=== PATIENT | female | born 1960 | race Caucasian/White ===

== ENCOUNTER 2017-12-12 10:37 | Outpatient (CLI) | payer OTHER ==
[~2017-12-12 10:37] MED LIST: ALLEGRA ALLERG180 MG PO; CATAFLAM50 MG; GILTUSS TR TAB1 EACH PO; TESSALON PERLE100 MG PO
== END 2017-12-12 10:53 | disposition home or self-care (01) ==
LOC: MRI 10:37
DX: M17.11 Unilateral primary osteoarthritis, right knee (principal)
CPT/HCPCS: 73721